=== PATIENT | male | born 1975 | race Caucasian/White ===

== ENCOUNTER → 2021-03-01 | Emergency (ER) | payer MEDICAID ==
[~2021-03-01] VITALS: Ht 175.3 cm; Wt 82.0 kg
[~2021-03-01] MED LIST: CEPH-585 PO; SULF1TAB49 PO; mupirocin 2% ointment 22GM TP STA
[2021-03-01 09:09] VITALS: BP 147/94
== END | disposition home or self-care (01) ==
LOC: ER 08:28
DX: L02.414 Cutaneous abscess of left upper limb (principal); L02.413 Cutaneous abscess of right upper limb; F17.210 Nicotine dependence, cigarettes, uncomplicated; F15.90 Other stimulant use, unspecified, uncomplicated; Z72.89 Other problems related to lifestyle; Z59.00 Homelessness unspecified; Z79.2 Long term (current) use of antibiotics; Z79.899 Other long term (current) drug therapy
CPT/HCPCS: 99283

== ENCOUNTER 2021-07-03 13:20 | Emergency (ER) | payer MEDICAID ==
[~2021-07-03] VITALS: Ht 175.3 cm; Wt 77.3 kg
[~2021-07-03 13:20] MED LIST changes: -SULF1TAB49 PO; -mupirocin 2% ointment 22GM TP STA
[2021-07-03 14:08] VITALS: BP 140/88
== END 2021-07-03 15:30 | disposition home or self-care (01) ==
LOC: ER 13:20
DX: M25.561 Pain in right knee (principal); M25.461 Effusion, right knee; F15.10 Other stimulant abuse, uncomplicated; Z59.00 Homelessness unspecified; W19.XXXA Unspecified fall, initial encounter; Y93.89 Activity, other specified; Y92.89 Other specified places as the place of occurrence of the external cause; Y99.8 Other external cause status
CPT/HCPCS: 73560; 99283